=== PATIENT | female | born 1995 | race Caucasian/White ===

== ENCOUNTER 2017-05-06 22:57 | Emergency (ER) | payer BC ==
[~2017-05-06] VITALS: Ht 162.6 cm; Wt 56.7 kg
[~2017-05-06 22:57] MED LIST: ACETAMINOPHEN-1 EAC1 PO; ADDERALL 10 MG10 MG; ADDERALL 30 MG30 MG PO; AMBIEN 5 MG TABL5 M1 PO; BACTRIM DS TAB1 EACH PO; CARBAMAZEPINE100 M2; CELEXA10 MG; CELEXA10 MG PO; CLONAZEPAM 0.50.5 M1; DEPAKOTE ER500 MG; DEPAKOTE ER500 MG PO; ESKALITH300 MG PO; IRON325 PO; LOESTRIN1 EAC1; LOXAPINE25 MG; MISOPROSTOL PO; NAPROSYN500 MG PO; NORCO 5-325 TA1 EACH PO; NORFLEX100 MG PO; PAXIL10 MG PO; PERCOCET 5-3251 EACH PO; PREDNISONE 20 M20 MG PO; RISPERDAL2 MG PO; SEROQUEL200 MG PO; TEGRETOL200 MG; TRAZODONE 150150 M1 PO; TRAZODONE HCL50 MG; TRAZODONE HCL50 MG PO; ZOFRAN ODT4 MG PO; ZOFRAN4 MG PO; ZOLOFT25 MG PO
[2017-05-06 23:06] VITALS: BP 134/88
[2017-05-06 23:46] LABS: AMP/METHAMP POSITIVE (Negative); BARBITURATES Negative (Negative); BENZODIAZEPINES Negative (Negative); COCAINE Negative (Negative); METHADONE Negative (Negative); OPIATES Negative (Negative); PCP Negative (Negative); THC Negative (Negative)
== END 2017-05-07 00:03 | disposition left against medical advice (07) ==
LOC: ER 22:57
PROVIDERS: Emergency Medicine
DX: F19.10 Other psychoactive substance abuse, uncomplicated (principal); L03.113 Cellulitis of right upper limb; F17.210 Nicotine dependence, cigarettes, uncomplicated; F10.99 Alcohol use, unspecified with unspecified alcohol-induced disorder; Z86.59 Personal history of other mental and behavioral disorders; Z88.1 Allergy status to other antibiotic agents; Z88.8 Allergy status to other drugs, medicaments and biological substances

== ENCOUNTER 2018-04-10 18:37 | Emergency (ER) | payer BC ==
[~2018-04-10] VITALS: Ht 162.6 cm; Wt 52.2 kg
[2018-04-10 19:19] LABS: ABSOLUTE NEUTROPHILS 4.2 thou/uL (1.4-8.2); BASOPHILS 0.5 % (0.0-2.0); EOSINOPHILS 0.9 % (0.0-3.0); HEMATOCRIT 38.7 % (37.0-47.0); HEMOGLOBIN 13.3 gm/dL (12.0-15.0); LYMPHOCYTES 29.3 % (24.0-44.0); MCH 31.4 pg (26.0-34.0); MCHC 34.2 g/dL (28.0-37.0); MCV 91.8 fL (80.0-100.0); PLATELET COUNT 208 thou/uL (150-400); POLYS 65.3 % (36.0-66.0); RBC 4.22 mil/uL (4.20-5.00); RDW 12.7 % (10.5-14.5); WBC 6.4 thou/uL (4.0-11.0)
[2018-04-10 19:25] LABS: URINE BILIRUBIN NEGATIVE (Negative); URINE BLOOD NEGATIVE (Negative); URINE CLARITY CLEAR; URINE COLOR YELLOW; URINE GLUCOSE-RANDOM* NEGATIVE (Negative); URINE KETONES NEGATIVE (Negative); URINE LEUKOCYTES TRACE (Negative); URINE NITRITE NEGATIVE (Negative); URINE PROTEIN (DIPSTICK) NEGATIVE (Negative); URINE UROBILINOGEN 0.2 E.U./dl (0.2-1.0)
[2018-04-10 19:30] LABS: ANION GAP 7 mmol/L (7-16); BUN 16 mg/dL (7-18); CALCIUM 9.9 mg/dL (8.5-10.1); CHLORIDE 104 mmol/L (98-107); CO2 25 mmol/L (21-32); CREATININE 1.1 mg/dL (0.6-1.0); GLUCOSE 109 mg/dL (74-106); POTASSIUM 3.8 mmol/L (3.5-5.1); SODIUM 136 mmol/L (136-145)
[2018-04-10 19:34] LABS: ALBUMIN 4.3 g/dL (3.4-5.0); SALICYLATE < 2.8 mg/dL (2.8-20.0); SGOT 18 U/L (15-37); SGPT 29 U/L (30-65); TOTAL BILIRUBIN 0.3 mg/dL (<0.1-1.0); TOTAL PROTEIN 8.5 g/dL (6.4-8.2)
[2018-04-10 19:35] LABS: AMP/METHAMP POSITIVE (Negative); BARBITURATES Negative (Negative); BENZODIAZEPINES Negative (Negative); COCAINE Negative (Negative); METHADONE Negative (Negative); OPIATES Negative (Negative); PCP Negative (Negative)
[2018-04-11 00:32] VITALS: BP 122/78
== END 2018-04-11 00:32 ==
LOC: ER 18:37
PROVIDERS: Physician Assistant
DX: F29 Unspecified psychosis not due to a substance or known physiological condition (principal); R45.851 Suicidal ideations; R45.850 Homicidal ideations; F25.9 Schizoaffective disorder, unspecified; F17.210 Nicotine dependence, cigarettes, uncomplicated; Z88.1 Allergy status to other antibiotic agents; Z88.8 Allergy status to other drugs, medicaments and biological substances

== ENCOUNTER 2018-07-21 22:49 | Emergency (ER) | payer BC ==
[~2018-07-21] VITALS: Ht 162.6 cm; Wt 59.0 kg
--- NOTE | ~2018-07-21 | EKG ---
[address] [address] ELECTROCARDIOGRAM REPORT Name: MAYANK JACKMAN Room #: DEP [facility] [id number] Admission: 07/21/18 Attend Phys: Discharge: 07/22/18 Date of : [birth year] Report #: [id number] THIS REPORT FOR: //name// [facility] ED Test Date: 2018-07-21 Test Time: 23:09:50 Pat Name: MAYANK JACKMAN Department: Room: Gender: F Calculus Teacher: BRODY : 1995 Requested By: Abiodun German Order Number: [id number] MD: Fran Montiel Measurements Intervals [place] Rate: 133 P: 69 NE: 125 QRS: 34 QRSD: 84 T: 16 QT: 304 QTc: 453 Interpretive Statements Sinus tachycardia Atrial premature complex Compared to ECG 10/27/2015 04:26:04 Atrial premature complex(es) now present Electronically Signed On 07-23-2018 8:31:58 CDT by Fran Montiel [email or web address] <ELECTRONICALLY SIGNED> By: Fran Montiel MD 07/23/18 0831 D: [id number] Fran Montiel MD /VANDA
[2018-07-21 23:25] LABS: ABSOLUTE NEUTROPHILS 9.9 thou/uL (1.4-8.2); BASOPHILS 0.4 % (0.0-2.0); EOSINOPHILS 0.1 % (0.0-3.0); HEMATOCRIT 39.3 % (37.0-47.0); HEMOGLOBIN 13.9 gm/dL (12.0-15.0); LYMPHOCYTES 12.6 % (24.0-44.0); MCH 31.7 pg (26.0-34.0); MCHC 35.4 g/dL (28.0-37.0); MCV 89.6 fL (80.0-100.0); PLATELET COUNT 244 thou/uL (150-400); POLYS 81.9 % (36.0-66.0); RBC 4.38 mil/uL (4.20-5.00); RDW 12.5 % (10.5-14.5); WBC 12.1 thou/uL (4.0-11.0)
[2018-07-21 23:28] LABS: ANION GAP 15 mmol/L (7-16); BUN 21 mg/dL (7-18); CHLORIDE 101 mmol/L (98-107); CO2 22 mmol/L (21-32); CREATININE 1.4 mg/dL (0.6-1.0); GLUCOSE 147 mg/dL (74-106); POTASSIUM 3.7 mmol/L (3.5-5.1); SODIUM 138 mmol/L (136-145)
[2018-07-21 23:35] LABS: ALBUMIN 4.3 g/dL (3.4-5.0); SALICYLATE 3.6 mg/dL (2.8-20.0); SGOT 21 U/L (15-37); SGPT 21 U/L (30-65); TOTAL BILIRUBIN 0.3 mg/dL (<0.1-1.0); TOTAL PROTEIN 8.7 g/dL (6.4-8.2)
[2018-07-22 01:20] LABS: URINE BILIRUBIN NEGATIVE (Negative); URINE BLOOD TRACE (Negative); URINE CLARITY CLEAR; URINE COLOR YELLOW; URINE GLUCOSE-RANDOM* NEGATIVE (Negative); URINE KETONES 1+ (Negative); URINE NITRITE-REFLEX NEGATIVE (Negative); URINE PROTEIN (DIPSTICK) 2+ (Negative); URINE SPECIFIC GRAVITY >= 1.030 (1.005-1.035); URINE UROBILINOGEN 0.2 E.U./dl (0.2-1.0)
[2018-07-22 01:22] LABS: URINE LEUKOCYTES-REFLEX TRACE (Negative)
[2018-07-22 01:29] LABS: AMP/METHAMP POSITIVE (Negative); BARBITURATES Negative (Negative); BENZODIAZEPINES Negative (Negative); COCAINE Negative (Negative); METHADONE Negative (Negative); OPIATES Negative (Negative); PCP Negative (Negative)
[2018-07-22 01:31] LABS: CASTS None Seen /LPF (None Seen); MUCUS 0-3 Light strn/LPF (None Seen); SQUAMOUS >10 Many /LPF (0-3)
[2018-07-22 01:32] LABS: URINE RBC 0-2 Rare /HPF (0-2); URINE WBC-REFLEX 0-5 Rare /HPF (0-5)
[2018-07-22 01:33] LABS: CRYSTALS None Seen /LPF (None Seen)
[2018-07-22] MEDS ORDERED: ATIVAN1 MG PO (02:16)
[2018-07-22 09:01] VITALS: BP 112/68
== END 2018-07-22 09:03 | disposition home or self-care (01) ==
LOC: ER 22:49
PROVIDERS: Emergency Medicine
DX: F15.10 Other stimulant abuse, uncomplicated (principal); R51 Headache; F17.210 Nicotine dependence, cigarettes, uncomplicated; Z86.2 Personal history of diseases of the blood and blood-forming organs and certain disorders involving the immune mechanism; Z88.1 Allergy status to other antibiotic agents; Z88.8 Allergy status to other drugs, medicaments and biological substances

== ENCOUNTER 2018-08-10 13:47 | Emergency (ER) | payer BC ==
[~2018-08-10] VITALS: Ht 162.6 cm; Wt 60.3 kg
[~2018-08-10 13:47] MED LIST changes: +ATIVAN1 MG PO
[2018-08-10 15:02] LABS: HEMATOCRIT 36.1 % (37.0-47.0); HEMOGLOBIN 12.5 gm/dL (12.0-15.0); MCH 31.2 pg (26.0-34.0); MCHC 34.6 g/dL (28.0-37.0); MCV 90.1 fL (80.0-100.0); RBC 4.01 mil/uL (4.20-5.00); RDW 12.5 % (10.5-14.5); WBC 6.8 thou/uL (4.0-11.0)
[2018-08-10 15:06] LABS: CALCIUM 9.9 mg/dL (8.5-10.1); CREATININE 0.7 mg/dL (0.6-1.0); POTASSIUM 3.7 mmol/L (3.5-5.1)
[2018-08-10 16:35] LABS: URINE BILIRUBIN NEGATIVE (Negative); URINE BLOOD NEGATIVE (Negative); URINE CLARITY CLEAR; URINE COLOR YELLOW; URINE GLUCOSE-RANDOM* NEGATIVE (Negative); URINE KETONES NEGATIVE (Negative); URINE LEUKOCYTES-REFLEX NEGATIVE (Negative); URINE NITRITE-REFLEX NEGATIVE (Negative); URINE PROTEIN (DIPSTICK) NEGATIVE (Negative); URINE SPECIFIC GRAVITY <= 1.005 (1.005-1.035); URINE UROBILINOGEN 0.2 E.U./dl (0.2-1.0)
[2018-08-10 16:42] LABS: AMP/METHAMP POSITIVE (Negative); BARBITURATES Negative (Negative); BENZODIAZEPINES Negative (Negative); COCAINE Negative (Negative); METHADONE Negative (Negative); OPIATES Negative (Negative); PCP Negative (Negative)
== END 2018-08-10 20:34 | disposition home or self-care (01) ==
LOC: ER 13:47
PROVIDERS: Emergency Medicine
DX: F29 Unspecified psychosis not due to a substance or known physiological condition (principal); F15.10 Other stimulant abuse, uncomplicated; F25.9 Schizoaffective disorder, unspecified; F17.210 Nicotine dependence, cigarettes, uncomplicated; Z88.1 Allergy status to other antibiotic agents; Z88.8 Allergy status to other drugs, medicaments and biological substances

== ENCOUNTER 2018-09-18 21:28 | Emergency (ER) | payer BC ==
[~2018-09-18] VITALS: Ht 162.6 cm; Wt 59.0 kg
[2018-09-18 22:24] LABS: ABSOLUTE NEUTROPHILS 2.5 thou/uL (1.4-8.2); BASOPHILS 0.7 % (0.0-2.0); EOSINOPHILS 1.7 % (0.0-3.0); LYMPHOCYTES 45.9 % (24.0-44.0); MCH 31.1 pg (26.0-34.0); MCHC 34.2 g/dL (28.0-37.0); MCV 90.9 fL (80.0-100.0); MONOCYTES 6.1 % (1.0-8.0); PLATELET COUNT 225 thou/uL (150-400); POLYS 45.6 % (36.0-66.0); RBC 4.51 mil/uL (4.20-5.00); RDW 13.8 % (10.5-14.5); WBC 5.4 thou/uL (4.0-11.0)
[2018-09-18 22:26] LABS: AMP/METHAMP POSITIVE (Negative); BARBITURATES Negative (Negative); BENZODIAZEPINES Negative (Negative); COCAINE Negative (Negative); METHADONE Negative (Negative); OPIATES Negative (Negative); PCP Negative (Negative)
[2018-09-18 22:33] LABS: CALCIUM 9.5 mg/dL (8.5-10.1); CREATININE 0.6 mg/dL (0.6-1.0); POTASSIUM 3.8 mmol/L (3.5-5.1)
[2018-09-19 10:01] VITALS: BP 96/62
== END 2018-09-19 10:02 | disposition home or self-care (01) ==
LOC: ER 21:28
PROVIDERS: Student in an Organized Health Care Education/Training Program
DX: F20.9 Schizophrenia, unspecified (principal); F15.229 Other stimulant dependence with intoxication, unspecified; K75.89 Other specified inflammatory liver diseases; F17.210 Nicotine dependence, cigarettes, uncomplicated; Z88.1 Allergy status to other antibiotic agents; Z88.8 Allergy status to other drugs, medicaments and biological substances

== ENCOUNTER 2018-09-26 02:24 | Emergency (ER) | payer BC ==
[~2018-09-26] VITALS: Ht 162.6 cm; Wt 56.7 kg
[2018-09-26 03:11] LABS: ABSOLUTE NEUTROPHILS 3.4 thou/uL (1.4-8.2); BASOPHILS 0.8 % (0.0-2.0); EOSINOPHILS 0.4 % (0.0-3.0); HEMATOCRIT 38.9 % (37.0-47.0); LYMPHOCYTES 36.8 % (24.0-44.0); MCH 30.3 pg (26.0-34.0); MCHC 33.4 g/dL (28.0-37.0); MCV 90.6 fL (80.0-100.0); MONOCYTES 5.7 % (1.0-8.0); PLATELET COUNT 223 thou/uL (150-400); POLYS 56.3 % (36.0-66.0); RDW 13.4 % (10.5-14.5); WBC 6.1 thou/uL (4.0-11.0)
[2018-09-26 03:19] LABS: CALCIUM 9.9 mg/dL (8.5-10.1); CREATININE 0.7 mg/dL (0.6-1.0); POTASSIUM 3.8 mmol/L (3.5-5.1)
[2018-09-26 04:30] VITALS: BP 137/89
== END 2018-09-26 04:31 | disposition home or self-care (01) ==
LOC: ER 02:24
PROVIDERS: Student in an Organized Health Care Education/Training Program
DX: F15.10 Other stimulant abuse, uncomplicated (principal); F20.9 Schizophrenia, unspecified; F17.210 Nicotine dependence, cigarettes, uncomplicated; Z86.2 Personal history of diseases of the blood and blood-forming organs and certain disorders involving the immune mechanism; Z88.1 Allergy status to other antibiotic agents; Z88.8 Allergy status to other drugs, medicaments and biological substances

== ENCOUNTER 2019-02-25 01:30 | Emergency (ER) | payer OTHER ==
[~2019-02-25] VITALS: Ht 162.6 cm; Wt 68.0 kg
[2019-02-25] MEDS ORDERED: OLANZAPINE20 MG PO (01:46)
[2019-02-25] MEDS ORDERED: DEPAKOTE ER500 MG PO (01:47)
[2019-02-25] MEDS ORDERED: BENZTROPINE ME0.5 MG PO (01:48)
[2019-02-25 02:09] VITALS: BP 116/65
[2019-02-25 02:38] LABS: URINE BILIRUBIN NEGATIVE (Negative); URINE BLOOD NEGATIVE (Negative); URINE CLARITY SL CLOUDY; URINE COLOR YELLOW; URINE GLUCOSE-RANDOM* NEGATIVE (Negative); URINE KETONES NEGATIVE (Negative); URINE LEUKOCYTES-REFLEX NEGATIVE (Negative); URINE NITRITE-REFLEX NEGATIVE (Negative); URINE PROTEIN (DIPSTICK) NEGATIVE (Negative); URINE UROBILINOGEN 0.2 E.U./dl (0.2-1.0)
== END 2019-02-25 03:20 | disposition home or self-care (01) ==
LOC: ER 01:30
PROVIDERS: Emergency Medicine
DX: R10.32 Left lower quadrant pain (principal); R10.31 Right lower quadrant pain; F17.210 Nicotine dependence, cigarettes, uncomplicated; Z88.8 Allergy status to other drugs, medicaments and biological substances; Z88.1 Allergy status to other antibiotic agents; Z86.2 Personal history of diseases of the blood and blood-forming organs and certain disorders involving the immune mechanism

== ENCOUNTER 2019-09-20 10:48 | Emergency (ER) | payer OTHER ==
[~2019-09-20] VITALS: Ht 162.6 cm; Wt 68.0 kg
[~2019-09-20 10:48] MED LIST changes: +BENZTROPINE ME0.5 MG PO; +OLANZAPINE20 MG PO
[2019-09-20 11:41] LABS: BASOPHILS 0.9 % (0.0-2.0); EOSINOPHILS 0.3 % (0.0-3.0); LYMPHOCYTES 26.6 % (24.0-44.0); MCH 31.5 pg (26.0-34.0); MCHC 34.1 g/dL (28.0-37.0); MCV 92.5 fL (80.0-100.0); MONOCYTES 5.6 % (1.0-8.0); PLATELET COUNT 270 thou/uL (150-400); POLYS 66.6 % (36.0-66.0); RBC 4.43 mil/uL (4.20-5.00); RDW 12.6 % (10.5-14.5); WBC 7.5 thou/uL (4.0-11.0)
[2019-09-20 11:45] LABS: URINE BILIRUBIN 1+ (Negative); URINE BLOOD NEGATIVE (Negative); URINE CLARITY CLEAR; URINE COLOR YELLOW; URINE GLUCOSE-RANDOM* NEGATIVE (Negative); URINE KETONES TRACE (Negative); URINE LEUKOCYTES-REFLEX TRACE (Negative); URINE NITRITE-REFLEX NEGATIVE (Negative); URINE PROTEIN (DIPSTICK) NEGATIVE (Negative); URINE SPECIFIC GRAVITY >= 1.030 (1.005-1.035); URINE UROBILINOGEN 0.2 E.U./dl (0.2-1.0)
[2019-09-20 11:46] LABS: ICTOTEST (BILI CONFIRMATORY) Negative (Negative)
[2019-09-20 11:51] LABS: AMP/METHAMP POSITIVE (Negative); BARBITURATES Negative (Negative); BENZODIAZEPINES Negative (Negative); COCAINE Negative (Negative); METHADONE Negative (Negative); OPIATES POSITIVE (Negative); PCP Negative (Negative)
[2019-09-20 11:54] LABS: CALCIUM 10.2 mg/dL (8.5-10.1); POTASSIUM 3.9 mmol/L (3.5-5.1)
[2019-09-20 11:59] LABS: ALBUMIN 4.4 g/dL (3.4-5.0); TOTAL BILIRUBIN 0.3 mg/dL (<0.1-1.0); TOTAL PROTEIN 8.9 g/dL (6.4-8.2)
[2019-09-20 13:03] VITALS: BP 103/72
--- NOTE | 2019-09-23 15:49 | EKG ---
[place] [address] [facility] [facility] [place] [address] ELECTROCARDIOGRAM REPORT Name: MAYANK JACKMAN Room #: [facility] [id number] Admission: 09/20/19 Attend Phys: Discharge: 09/20/19 Date of : [birth year] Report #: [id number] THIS REPORT FOR: //name// [facility] ED Test Date: 2019-09-20 Test Time: 10:55:46 Pat Name: MAYANK JACKMAN Department: Room: Gender: F Customer Care Team Coach: sariah : 1995 Requested By: Naresh Jacobsen Order Number: [id number] MD: Fran Montiel Measurements Intervals [place] Rate: 91 P: 18 [place]: 113 QRS: 39 QRSD: 88 T: 7 QT: 355 QTc: 437 Interpretive Statements Sinus rhythm Borderline short [place] interval Probable left atrial enlargement Compared to ECG 07/21/2018 23:09:50 Sinus tachycardia no longer present Atrial premature complex(es) no longer present Electronically Signed On 09-23-2019 15:48:53 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
== END 2019-09-20 13:21 | disposition home or self-care (01) ==
LOC: ER 10:48
PROVIDERS: Nurse Practitioner Family
DX: F15.10 Other stimulant abuse, uncomplicated (principal); R00.2 Palpitations; R11.2 Nausea with vomiting, unspecified; F17.210 Nicotine dependence, cigarettes, uncomplicated; Z86.2 Personal history of diseases of the blood and blood-forming organs and certain disorders involving the immune mechanism; Z88.1 Allergy status to other antibiotic agents; Z88.8 Allergy status to other drugs, medicaments and biological substances